=== PATIENT | male | born 1945 | race Asian ===

== ENCOUNTER 2018-11-26 08:53 | Emergency (ER) | payer SELFPAY ==
[~2018-11-26] VITALS: Ht 167.6 cm; Wt 61.7 kg
[2018-11-26 09:00] VITALS: Ht 167.6 cm; Wt 61.7 kg
[2018-11-26 10:46] VITALS: BP 125/69
== END 2018-11-26 11:06 | disposition home or self-care (01) ==
LOC: ED 08:53
DX: N39.0 Urinary tract infection, site not specified (principal); I10 Essential (primary) hypertension